=== PATIENT | male | born 2000 | race Hispanic/Latino ===

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

== ENCOUNTER 2020-01-26 18:51 | Emergency (ER) | payer OTHER, SELFPAY ==
--- NOTE | ~2020-01-26 | XR_ITS ---
EXAMINATION: XR barium swallow DATE: 01/26/2020 20:54 INDICATION: Esophageal foreign body. TECHNIQUE: The patient drank thin barium. Fluoroscopy of the hypopharynx and esophagus was performed. Fluoroscopy exposure time was 0.7 minutes. The total number of images was 736. The dose-area product was 1.077 Gy-cm^2. COMPARISON: None. FINDINGS: The oropharynx and hypopharynx are unremarkable. There is no mass or stricture of the esoph mel. Esophageal motility is normal. There is no hiatal hernia. IMPRESSION: 1. Normal contrast esophagram. Reviewed, dictated and finalized at location A.
--- NOTE | ~2020-01-26 | XR_ITS ---
EXAMINATION: XR chest 2V DATE: 01/26/2020 19:41 INDICATION: Right upper chest pain. TECHNIQUE: Frontal and lateral views of the chest were obtained. COMPARISON: Chest 2 views 09/17/2019 FINDINGS: The chest demonstrates clear lungs without pneumonia, pleural effusion, or pneumothorax. Th e heart size is normal. IMPRESSION: 1. No acute cardiopulmonary disease. Reviewed, dictated and finalized at location A.
[2020-01-26 18:53] VITALS: BP 148/93; PULSE 108; RESP 20; TEMP 36.8; O2SAT 100
[2020-01-26 19:05] LABS: Basophils Percent Auto 0.3 % (0.2-1.2); Eosinophils Absolute Auto 0.2 K/mm3 (0-0.3); Eosinophils Percent Auto 1.5 % (0-4.4); Hematocrit 45.6 % (42.0-52.0); Hemoglobin 16.1 g/dL (14.0-18.0); Immature Granulocyte Absolute 0.02 K/mm3 (0.00-0.031); Immature Granulocyte Percent A 0.2 % (0-0.5); Lymphocytes Absolute Auto 2.98 K/mm3 (0.9-3.2); Lymphocytes Percent Auto 30.2 % (18.3-44.2); Mean Corpuscular HGB Conc 35.3 g/dl (32-36); Mean Corpuscular Hemoglobin 29.4 pg (26-34); Mean Corpuscular Volume 83.2 fl (80-100); Mean Platelet Volume 9.4 fl (7.4-10.4); Monocytes Absolute Auto 0.5 K/mm3 (0.1-0.6); Monocytes Percent Auto 4.8 % (2.6-8.5); Neutrophils Absolute Auto 6.2 K/mm3 (1.3-6.7); Platelet Count Result 293 k/mm3 (150-375); Red Blood Count 5.48 M/mm3 (4.6-6.20); Red Cell Distribution Width 11.8 % (11.5-14.5); White Blood Count 9.9 K/mm3 (4.5-10.0)
[2020-01-26 19:27] LABS: Blood Urea Nitrogen 10 mg/dL (8-21); Calcium 9.5 mg/dL (8.9-10.7); Carbon Dioxide 24 mmol/L (22-30); Chloride 100 mmol/L (98-107); Estimated CRCL calculation 101 ml/min; Estimated Glomerular Filt Rate > 60; Glucose 138 mg/dL (75-110); Potassium 3.6 mmol/L (3.4-5.0); Sodium 137 mmol/L (134-143)
[2020-01-26 19:38] VITALS: BP 134/62; PULSE 80; RESP 15; TEMP 37.1; O2SAT 98
--- NOTE | 2020-01-26 19:38 | PC.NURSE ---
pt to xray via w/c.
--- NOTE | 2020-01-26 20:21 | ED.GENADULT ---
HPI - General Adult General Chief complaint: Unspecified Stated complaint: fb gi/beef Time Seen by Provider: 01/26/20 19:58 Source: patient History of Present Illness HPI narrative: Patient was eating beef stew and had foreign body-like feeling on the right side of his throat. Patient denies difficulty swallowing or breathing. Started 2 hours prior to arrival to the emergency room. Patient denies similar symptoms. Related Data Home Medications Medication Instructions Recorded Confirmed No Home Medications 09/17/19 Allergies Allergy/AdvReac Type Severity Reaction Status Date / Time No Known Allergies Allergy Unverified 12/05/18 01:50 Review of Systems Review of Systems: Narrative: CONSTITUTIONAL: Denies fever, chills, or sweats. EYES: Denies visual changes, redness, or discharge. ENT: Denies rhinorrhea, congestion, sore throat, or otalgia. CARDIOVASCULAR: Denies chest pain, palpitations, or edema. RESPIRATORY: Denies cough or dyspnea. GASTROINTESTINAL: Denies abdominal pain, nausea, vomiting, or diarrhea. GENITOURINARY: Denies dysuria or hematuria. SKIN: Denies rash or itching. MUSCULOSKELETAL: Denies back pain, joint pain, or myalgia. NEUROLOGIC: Denies headache, numbness, or weakness. PSYCHIATRIC: Denies anxiety or depression. PMFSH Past Medical History Medical History Anxiety Arm fracture Hernia Surgical History Surgical History Hx of eye surgery Hx of hernia repair Social History Social History Smoking status: Never smoker Gender identity (if verbalized by the patient): Male Exam Narrative: Exam Narrative: General appearance: Well-developed, well-nourished Skin: Normal color Head: Normocephalic, nontraumatic Eyes: Clear conjunctiva ENT: Oropharynx normal, ears normal, nose normal Neck: Supple, nontender Chest and respiratory: Airway patent, no respiratory distress, no accessory muscle use Heart: Regular rate/rhythm Abdomen: Soft, nontender, no organomegaly, quiet bowel sounds Vascular: Normal peripheral pulses, normal capillary refill. Musculoskeletal: Normal range of motion, nontender back Neurologic: Alert and oriented ?3, [employer] is normal as tested, no gross motor deficit Course Course Emergency Course: Stable Vital Signs Vital signs: Vital Signs Temperature 36.8 C 01/26/20 18:53 Pulse Rate 108 H 01/26/20 18:53 Respiratory Rate 20 01/26/20 18:53 Blood Pressure 148/93 H 01/26/20 18:53 Pulse Oximetry 100 01/26/20 18:53 Temperature 37.1 C 01/26/20 19:38 Pulse Rate 76 01/26/20 21:34 Respiratory Rate 20 01/26/20 21:34 Blood Pressure 128/79 01/26/20 21:34 Pulse Oximetry 98 01/26/20 21:34 Medical Decision Making MDM Narrative Medical decision making narrative: Patient denies any trouble swallowing or breathing the possibility of stretch/scratch of the right side of the throat could be causing patient feeling. I plan to get barium swallow. Further plan to follow Vital Signs Vital Signs: Vital Signs Temperature 36.8 C 01/26/20 18:53 Pulse Rate 108 H 01/26/20 18:53 Respiratory Rate 20 01/26/20 18:53 Blood Pressure 148/93 H 01/26/20 18:53 Pulse Oximetry 100 01/26/20 18:53 Temperature 37.1 C 01/26/20 19:38 Pulse Rate 76 01/26/20 21:34 Respiratory Rate 20 01/26/20 21:34 Blood Pressure 128/79 01/26/20 21:34 Pulse Oximetry 98 01/26/20 21:34 Lab Data Result diagrams: 01/26/20 18:59 01/26/20 18:59 Labs: Lab Results 01/26/20 01/26/20 Range/Units
--- NOTE | 2020-01-26 20:25 | PC.NURSE ---
pt given cup of water at this time per md verbal orders.
--- NOTE | 2020-01-26 20:26 | PC.NURSE ---
pt called out using call light. he states he was able to swallow all the water in the cup but states he did gag. aware.
[2020-01-26 21:34] VITALS: BP 128/79; PULSE 76; RESP 20; O2SAT 98
[2020-01-26 22:36] VITALS: BP 119/87; PULSE 72; RESP 18; O2SAT 99
== END 2020-01-26 22:37 | disposition home or self-care (01) ==
PROVIDERS: Emergency Medicine; Emergency Provider Emergency Medicine
DX: T18.108A Unspecified foreign body in esophagus causing other injury, initial encounter (principal)
CPT/HCPCS: 36415; 71046; 74220; 80048; 85025; 99283

== ENCOUNTER 2022-01-15 16:58 | Emergency (ER) | payer OTHER, SELFPAY ==
[2022-01-15 17:13] VITALS: BP 113/62; PULSE 71; RESP 18; TEMP 37.3; O2SAT 99
--- NOTE | 2022-01-15 17:59 | ED.SKABFB ---
HPI - Skin/Abscess/Foreign Bdy General Chief complaint: Skin/Abscess/Foreign Body Stated complaint: rash Time Seen by Provider: 01/15/22 17:59 History of Present Illness HPI narrative: Marlon Powell is a 21 yo male with no PMH who has a rash that breaks on his right cheek that is maculopapular swollen and painful every 6 to 12 months and has happened for years like this. He never put anything on the rash but it takes 2 to 4 weeks for 2 dry up scab and disappear Related Data Allergies Allergy/AdvReac Type Severity Reaction Status Date / Time No Known Allergies Allergy Verified 01/15/22 17:27 Review of Systems Review of Systems: CONSTITUTIONAL: Denies fever, chills, sweats. EYES: Denies visual changes, redness, discharge. ENT: Denies rhinorrhea, congestion, sore throat, otalgia. CARDIOVASCULAR: Denies chest pain, palpitations, edema. RESPIRATORY: Denies dyspnea, wheezing, cough GASTROINTESTINAL: Denies abdominal pain, nausea, vomiting, diarrhea. GENITOURINARY: Denies dysuria, hematuria, abnormal discharge SKIN: . Macular papular rash on face, right cheek-drainage is NEUROLOGIC: Denies numbness, or focal weakness. PSYCHIATRIC: Denies anxiety or depression. [facility] Past Medical History Medical History (Updated 01/15/22 @ 18:09 by Desiree Clarke CNP) Anxiety Arm fracture Hernia Surgical History Surgical History Hx of eye surgery Hx of hernia repair Social History Social History Smoking status: Never smoker Gender identity (if verbalized by the patient): Male Comments At time of signature, I agree with nursing past medical, surgical, social and family history. There is no relevant family history pertinent to the presenting complaint. Exam Narrative: GENERAL: This is a well-nourished, well-developed patient, in mild distress. HEAD: normocephalic, atraumatic. EYES:Sclera clear/white. Vision is grossly intact. EARS: External ears normal, . Hearing grossly intact. NOSE: External nose normal without nasal discharge, nares without redness, no rhinorrhea. THROAT: Mucous membranes moist, NECK: Neck supple, non-tender CARDIOVASCULAR: Regular rate and rhythm without murmurs, gallops, or rubs. RESPIRATORY: Clear to auscultation. Breath sounds equal bilaterally. No wheezes, rales, or rhonchi. GASTROINTESTINAL: Not done SKIN: warm, intact with Macular papular rash that is raised and swollen on the right cheek that weeps NEURO: awake, alert, and oriented to person, place and time. There were no obvious focal neurologic abnormalities. Steady gait EXTREMITIES: Normal range of motion. BACK: Nontender without deformity Course Course Emergency Course: Patient comes with a rash on the right cheek that he has had on and off for years he has not tried to treat it in the past and is here for recommendation of medication Based on what it looks like and lack of treatment it is macular papular raised swollen and also pruritic Started on Medrol Dosepak and erythromycin lotion to face; Level of Care: Express Care Visit Vital Signs Vital signs: Vital Signs Temperature 99.1 F 01/15/22 17:13 Pulse Rate 71 01/15/22 17:13 Respiratory Rate 18 01/15/22 17:13 Blood Pressure 113/62 01/15/22 17:13 Pulse Oximetry 99 01/15/22 17:13 Oxygen Delivery Room Air 01/15/22 17:13 Temperature 99.1 F 01/15/22 17:13 Pulse Rate 71 01/15/22 17:13 Respiratory Rate 18 01/15/22 17:13 Blood Pressure 113/62 01/15/22 17:13 Pulse Oximetry 99 01/15/22 17:13 Oxygen Delivery Room Air 01/15/22 17:13 MDM - Skin/Abscess/Foreign Bdy Differential Diagnosis Differential diagnosis: Likely urticaria, cellulitis, eczema, contact dermatitis and other Critical Care Time Critical Care Time Critical Care Time: No Discharge Plan Discharge Clinical Impression: Rash and nonspecific skin eruption
== END 2022-01-15 18:20 | disposition home or self-care (01) ==
PROVIDERS: Emergency Provider Nurse Practitioner
DX: R21 Rash and other nonspecific skin eruption (principal)
CPT/HCPCS: 99213; G0463

== ENCOUNTER 2022-02-27 10:51 | Emergency (ER) | payer OTHER, SELFPAY ==
--- NOTE | 2022-02-27 10:55 | ED.DENTAL ---
HPI - Dental/Oral General Chief complaint: Dental/Oral Stated complaint: dental prob Time Seen by Provider: 02/27/22 10:55 Source: patient Mode of arrival: ambulatory Limitations: no limitations History of Present Illness HPI Narrative: Marlon is a 21-year-old male patient presenting to the clinic today with complaints of dental pain x1 week. He reports he has a right lower back wisdom tooth coming and that is causing him some problems he thinks it may be infected. Related Data Allergies Allergy/AdvReac Type Severity Reaction Status Date / Time No Known Allergies Allergy Verified 02/27/22 11:00 Review of Systems Review of Systems: Pertinent positives per HPI. Patient denies any fever, chills, rash, headache, visual changes, dizziness, cough, runny nose, sore throat, shortness of breath, chest pain, palpitations, nausea, vomiting, diarrhea, constipation, abdominal pain, or any urinary issues. PMFSH Past Medical History Medical History Anxiety Arm fracture Hernia Surgical History Surgical History Hx of eye surgery Hx of hernia repair Social History Social History Smoking status: Never smoker Gender identity (if verbalized by the patient): Male Comments At the time of my signature, I reviewed and agree with the nursing past medical, surgical, social, and family history. There is no relevant family history pertinent to the patient complaint. Exam Narrative: General: Well-developed, well nourished, in no apparent distress Head: Normocephalic, atraumatic Eyes: Pupils equally round and reactive to light bilaterally, EOM intact, sclera and conjunctive clear, no discharge, lids normal Ears: TMs intact and clear, ear canals clear, no drainage, grossly hearing normal. Nose: Nares patent, no discharge, no inflammation, no sinus tenderness. Mouth: Oropharynx without lesions or masses, good dentition, MMM. Impacted right lower wisdom teeth. Neck: Supple, trachea midline, no enlargement of anterior or posterior cervical nodes, no thyroid masses or goiter palpable. Cardio: Regular rate and rhythm, s1 and s2 normal, no murmur appreciated. Resp: Clear to auscultation bilaterally anteriorly and posteriorly, no rhonchi, rales, wheezing or rubs Course Course Emergency Course: Portions of this record may have been created with voice recognition software. Level of Care: Express Care Visit Vital Signs Vital signs: Vital signs reviewed MDM - Dental/Oral MDM Narrative Medical decision making narrative: At the time of visit patient is resting comfortably on the exam table. Patient has dental pain to the right lower jaw/molar wisdom tooth. This appears to be infected. I will going give a prescription for some amoxicillin and follow-up with his dentist this was possible. Supportive measures were discussed with the patient he voiced understanding of discharge instructions and agrees to treatment plan. Differential Diagnosis Differential diagnosis: Likely gingival abscess, dental caries, toothache, dental abscess and other (Impacted wisdom tooth) Discharge Plan Discharge Clinical Impression: Tooth ache Patient Disposition: Home, Self-Care Condition: Stable Instructions: Antibiotic Form, Toothache (ED) Additional Instructions: May take Tylenol/Motrin as needed for pain May apply ice pack or heat pack to the affected area Take amoxicillin as prescribed Follow-up with your dentist as soon as possible Patient Language: [place]i Prescriptions: New amoxicillin 500 mg capsule 500 mg PO Q8H 10 Days Qty: 30 0RF Follow-up/Referrals: PHYSICIAN,SENIOR RECEPTIONIST [Primary Care Provider] - Time of Disposition: 11:04 Quality NIHSS Nursing Documentation ED NIHSS nursing documentation: reviewed/agree
[2022-02-27 11:00] VITALS: BP 117/70; PULSE 60; RESP 16; TEMP 35.7; O2SAT 100
== END 2022-02-27 11:11 | disposition home or self-care (01) ==
PROVIDERS: Emergency Provider Nurse Practitioner Family
DX: K08.89 Other specified disorders of teeth and supporting structures (principal)
CPT/HCPCS: 99213; G0463